=== PATIENT | female | born 1980 | race American Indian/Alaskan Native ===

== ENCOUNTER 2017-02-02 06:06 | Inpatient (IN) | payer BC ==
[2017-01-29 12:17] LABS: Basophils % (Auto) 0.6 % (0.0-1.8); Eosinophils % (Auto) 3.1 % (0.0-4.3); Hematocrit 39.2 % (30.3-42.9); Hemoglobin 12.9 gm/dl (10.1-14.3); Mean Corpuscular HGB Conc 33 % (30-34); Mean Corpuscular Hemoglobin 28 pg (28-32); Mean Corpuscular Volume 85 fl (79-97); Platelet Count 201 K/mm3 (140-440); Red Cell Distribution Width 12.4 % (13.2-15.2); White Blood Count 8.4 K/mm3 (4.5-11.0)
--- NOTE | 2017-01-29 12:20 | Anesthesia Consultation ---
Anesthesia Consult and Med Hx Date of service: 01/29/17 - Airway Anesthetic Teeth Evaluation: Good ROM Head & Neck: Adequate Mental/Hyoid Distance: Adequate Mallampati Class: Class II Intubation Access Assessment: Probably Good - Pulmonary Exam CTA: Yes - Cardiac Exam Cardiac Exam: RRR - Pre-Operative Health Status ASA Pre-Surgery Classification: ASA2 Proposed Anesthetic Plan: General - Pulmonary Hx Asthma: Yes - Cardiovascular System Hx Hypertension: No - Central Nervous System Hx Psychiatric Problems: No - Endocrine Hx Non-Insulin Dependent Diabetes: No - Hematic Hx Anemia: Yes - Other Systems Hx Alcohol Use: Yes (occas) Hx Cancer: No
[2017-01-29 12:36] LABS: Anion Gap 14 mmol/L; BUN/Creatinine Ratio 14.28; Blood Urea Nitrogen 10 mg/dL (7-17); Calcium 8.8 mg/dL (8.4-10.2); Carbon Dioxide 27 mmol/L (22-30); Chloride 103.8 mmol/L (98-107); Glucose 93 mg/dL (65-100); Potassium 4.1 mmol/L (3.6-5.0); Sodium 141 mmol/L (137-145)
--- NOTE | 2017-02-01 14:06 | History and Physical Report ---
History of Present Illness Date of examination: 01/29/17 History of present illness: Patient has been reassessed/reevaluated/re-examined. H&P has been reviewed. No interval changes. This is a 36 years old female who presents with menstrual disorder. The patient complains of menses, heavy bleeding, dysmenhorrhea, history of fibroids , fatigue and cramping, but denies spotting, lack of menses, she may be , history of thyroid disease, history of bleeding disorders, lightheadness and orthostatic symptoms. Menstrual periods have been regular and with excessive flow. Interval between menses is 26 days and 30 days. Number of pads used per day is 9-10. Menstrual flow lasts 3 days and 4 days. This is a 36 years old female who presents with uterine fibroids. She complains of abdominal pain, abdominal pressure, pelvic pain, pelvic pressure and menorrhagia, but denies intermenstrual bleeding. Prior to today's visit the patient has had US of pelvis. Patient's symptoms when present disrupts her normal daily activities Patient desires definitive treatment Vital Signs: Patient Profile: 36 Years Old Female LMP: 01/25/2017 Height: 70 inches (177.80 cm) Weight: 213 pounds (96.82 kg) BMI: 30.56 BSA: 2.15 Menstrual History: LMP (date): 01/25/2017 Current Method of Contraception: None Past History : 2 Term Births: 0 Premature Births: 0 Living Children: 0 Para: 0 Mult. Births: 0 Prev : 0 Prev. attempt? 0 Aborta: 2 Elect. Ab: 2 Spont. 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 Operations: Breast Biopsy: (1999) D&C:x2 Abnormal PAP: negative Uterine Anomaly: positive fibroids Infection History HIV Risk Eval: no Current Allergies (reviewed today): TETRACYCLINE HCL (TETRACYCLINE HCL CAPS) (Critical) LEVAQUIN (Critical) LATEX GLOVES (DISPOSABLE GLOVES) (Critical) Past Medical History: Asthma Pneumonia Past Surgical History: Breast Biopsy: (1999) D&C:x2 Family History Summary: Other family member - Has No Family History of Colon Cancer - Entered On: 2016 Other family member - Has No Family History of Breast Cancer - Entered On: 2016 Other family member - Has Family History of Hypertension - Entered On: 01/29/2017 Other family member - Has Family History of Hyperlipidemia - Entered On: 2016 Other family member - Has Family History of Diabetes - Entered On: 01/29/2017 Other family member - Has Family History of Coronary Heart Disease - Entered On : 01/29/2017 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 Risk Factors: Smoked Tobacco Use: Never smoker Smokeless Tobacco Use: Never Passive smoke exposure: no Drug use: no HIV high-risk behavior: no Alcohol use: yes Type: occ Exercise: no Seatbelt use: 100 % Review of Systems See HPI General Complains of fatigue. Denies fever, chills, sweats, anorexia, weakness, malaise, weight loss and sleep disorder. Complains of urinary frequency, abnormal vaginal bleeding, painful periods and painful sex. Denies vaginal discharge, incontinence, dysuria, hematuria, amenorrhea, menorrhagia, pelvic pain, genital sores, decreased libido, urinary urgency, hot flashes, vaginal dryness, vaginal itching and vaginal odor. CV Denies chest pains, palpitations, syncope, dyspnea on exertion, orthopnea, PND and peripheral edema. Resp Denies cough, dyspnea at rest, excessive sputum, hemoptysis, wheezing and pleurisy. GI Denies nausea, vomiting, diarrhea, constipation, change in bowel habits, abdominal pain, melena, hematochezia, jaundice, gas/bloating, indigestion/ heartburn, dysphagia and odynophagia. Breast Denies left breast lump, right breast lump, nipple discharge, bloody discharge from nipple, breast pain, abnormal mammogram and breast enlargement. Psych Denies depression, anxiety, irritability and mood swings. Past History Past Medical History: other (See HPI) Past Surgical History: Other (See HPI) Social history: other (See HPI) Family history: other (See HPI) Medications and Allergies Allergies Allergy/AdvReac Type Severity Reaction Status Date / Time adhesive Allergy Hives Verified 01/19/17 12:15 latex Allergy Hives Verified 01/19/17 12:15 Home Medications Medication Instructions Recorded Confirmed Last Taken Type ALBUTEROL Inhaler [Proair] 2 puff IH QID PRN 01/19/17 01/19/17 Unknown History Cetirizine HCl [ZyrTEC] 10 mg PO DAILY 01/19/17 01/19/17 Unknown History Ferrous Sulfate [Feosol] 325 mg PO BID 01/19/17 01/19/17 Unknown History Active Meds: Active Medications Celecoxib (Celebrex) 200 mg PO PREOP NR Stop: 02/02/17 23:59 Gabapentin (Neurontin) 600 mg PO PREOP NR Stop: 02/02/17 23:59 Sodium Chloride (Nacl 0.9% 1000 Ml) 1,000 mls @ 100 mls/hr IV DIRECT ISAIAH Midazolam HCl (Versed) 2 mg IV PREOP NR Stop: 02/02/17 23:59 Review of Systems Constitutional: other (See HPI) Exam - Physical Exam Narrative exam: HEENT: normocephalic, no lesions or deformities Neck/Thyroid: supple, thyroid normal Skin no significant abnormal lesions or rashes Chest: respiratory effort normal, clear to auscultation CV: regular, normal S1-S2, no murmur, no rub, no gallop Abdomen: Obese, normal bowel sounds, soft, nontender, no HSM Musculoskeletal: grossly normal ROM in joints, no joint tenderness or muscle weakness Neuro: no gross anomalities Extremities: no clubbing, cyanosis, or edema 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 Questions answered. Discussed with patient various medical, surgical and radiological therapies common for treatment including myomectomy hysterectomy and uterine artery embolization Patient's symptoms when present disrupts her normal daily activities Patient desires definitive treatment Patient desires hysterectomy Discussed risks and benefits of laparotomy, laparoscopy, vaginal and robotic assisted approaches for hysterectomies Patient desires robotic assisted total hysterectomy. Consent reviewed and signed . The risks and alternatives for this surgery were reviewed with the patient. Discuss the risks of the surgery including infection , bleeding possibly heavy enough to require a blood transfusion, possible damage to bowel, bladder or ureter. Patient understand that this surgery with make her sterile.Patient understands if her ovaries are removed she will become menopausal. Also if unable to complete robitcally a laparotomy maybe required. Her questions were answered. Patient advised the small risks of spreading of malignancy if morcellator is used during the surgery patient understands and approve of use if necessary Patient understands and desires to proceed. (2) Menometrorrhagia Current Visit: Yes Status: Acute Plan to address problem: Secondary to #1 (3) Dysmenorrhea Current Visit: Yes Status: Acute Plan to address problem: Secondary to #1 (4) Asthma Current Visit: Yes Status: Chronic Qualifiers: Asthma severity: mild intermittent Asthma complication type: A
[2017-02-02] MEDS ORDERED: NACL BACTERIOSTATIC INFILTRATI ONE (06:33)
[2017-02-02] MEDS ORDERED: CLARITIN PO ONE (06:58)
[2017-02-02] MEDS ORDERED: NACL 0.9% 1000 ML 1,000 ML IV SCH (07:00)
[2017-02-02] MEDS ORDERED: NEURONTIN PO NR (07:00)
[2017-02-02] MEDS ORDERED: VERSED IV NR (07:00)
--- NOTE | 2017-02-02 07:18 | Anesthesia Day of Surgery ---
Anesthesia Day of Surgery - Day of Surgery Patient Examined: Yes Patient H&P Reviewed: Yes Patient is NPO: Yes
[2017-02-02] MEDS ORDERED: ZEMURON IV ONE ×2 (07:24→09:35)
[2017-02-02] MEDS ORDERED: XYLOCAINE MPF 2% ONE (07:24)
[2017-02-02] MEDS ORDERED: DIPRIVAN 10 MG/ML IV ONE (07:25)
[2017-02-02] MEDS ORDERED: METHYLENE BLUE ONE (07:28)
[2017-02-02] MEDS ORDERED: NEOSPORIN GU IR ONE ×2 (07:28→07:46)
[2017-02-02] MEDS ORDERED: MARCAINE-EPI 0.25%-1:200,000 INFILTRATI ONE ×2 (07:28→07:46)
[2017-02-02] MEDS ORDERED: NACL 0.9% IR ONE ×2 (07:46)
[2017-02-02] MEDS ORDERED: PROAIR IH ONE (08:45)
[2017-02-02] MEDS ORDERED: ZOFRAN ONE (08:47)
[2017-02-02] MEDS ORDERED: DECADRON ONE (08:47)
[2017-02-02] MEDS ORDERED: ZOFRAN IV PRN (09:00)
[2017-02-02] MEDS ORDERED: NACL 0.9% 100 ML ONE (09:30)
[2017-02-02] MEDS ORDERED: NACL 0.9% IV ONE (09:37)
[2017-02-02] MEDS ORDERED: METHYLENE BLUE IV ONE (09:38)
[2017-02-02] MEDS ORDERED: NACL 0.9% 1000 ML 1,000 ML ONE (09:43)
[2017-02-02] MEDS ORDERED: NEOSTIGMINE ONE (10:15)
[2017-02-02] MEDS ORDERED: ROBINUL ONE (10:15)
[2017-02-02] MEDS ORDERED: PROAIR IH PRN (10:53)
[2017-02-02] MEDS: DILAUDID IV PRN ×2 (11:35→11:45)
[2017-02-02] MEDS ORDERED: PROVENTIL IH PRN (12:05)
--- NOTE | 2017-02-02 12:07 | Operative Report ---
Operative Report Operative Report: Date of procedure: 02/02/2017 Pre-operative diagnosis: Symptomatic leiomyomata with dysmenorrhea and menometrorrhagia and pelvic pain Post-operative diagnosis: Same plus pelvic adhesive disease Procedure name(s):Robotic Assisted Total Hysterectomy with bilateral salpingectomy and lysis of adhesions Surgeon: Jay Hammond MD Comprehensive Ophthalmologist: Chris Villeda physician asset protection assistant Anesthesia: General EBL: 50 mL Complications: None Findings: Patient with a uterus with multiple leiomyomata measuring approximately 14-16 weeks in size with a large myoma posteriorly approximately 7 cm in diameter discussed displacing the uterus to a left she had normal ovaries bilaterally and fallopian tubes bilaterally also had multiple small pedunculated fibroids. Patient did have adhesions between the colon and posterior uterus in the posterior cul-de-sac Specimen(s): Uterus with cervix and bilateral fallopian tubes Procedure: Patient was brought to the operating room where general anesthesia was induced without difficulty. Patient was placed in the dorsal lithotomy position. Prepped and draped in the usual sterile manner for robotic procedure. Rivera catheter was placed without difficulty. Speculum was placed in the vagina. A large V-Care Uterine manipulator was placed without difficulty. Attention was now switched to the patient's abdomen. A vertical supra-umbilicus incision was made with a scalpel. A 10-12 trocar was placed in this incision under direct visualization. Intra-abdominal placement was verified with no evidence of internal organ damage. The patient pelvic findings were noted as above. It was determined that the patient was a candidate for robotic procedure. On both sides the umbilical incision at about 8 cm, incisions were made for robotic trocar. Each robotic trocar was placed under direct visualization with no evidence of internal organ damage. Two surgery tech ports were then placed. One 8-10 trocar was placed 2 fingerbreadths above the right iliac crest. The second [address] between the camera port and the right robotic arms port. At this time the patient was placed in extreme Trendelenburg. The da Hetal robot was then docked on the patient's left side. The trocars connected to the robot appropriately. At this time I took my place under the robotic operating jaimes. Starting on the patient's right side the mesosalpinx of the tube were cauterized for mild distal to proximal tube. Bipolar cautery was placed across the proximal portion of the fallopian tube. This area was cauterized and cut the fallopian tube was then removed from the large asset protection assistant port. Next the adhesions of the colon and the posterior cul-de-sac was taken down both sharply and bluntly carefully with no evidence of organ damage. Adhesions of the left ovary and the posterior uterus and cul-de-sac were also taken down. Next the Utero-ovarian complex was cauterized and cut. This was followed by cauterizing and cutting the right fallopian tube and right round ligament. The broad ligament was then opened. The bladder flap was formed anteriorly. The posterior broad ligament was then excised. The uterine vessels were skeletonized. The ureter was clearly seen out of the operative field. Methylene blue was administrated intravenously and no blue dye was seen throughout the case intraoperatively. The bladder was pushed away from the anterior uterus. Attention was then switched to the patient's left side. The same procedure was repeated on the left side with perform the salpingectomy followed by isolating the uterine vessels cauterized and cutting and completing the bladder flap from the left side. At this time the uterus was appearing very cyanotic. After inspecting the bladder flap insured no evidence of bladder injury, also expecting the posterior cul-de-sac clearly seen and the uterosacrals were no evidence of damage: the colpotomy was then started. Incision started at 6:00 until the V-Care could be seen. This incision was extended from 6:00 to 9:00. Then from 6:00 to 3:00. Then from 9:00 to 12:00. This incision was extended from 3:00 to 12:00. At this time colpotomy was complete with no evidence of adjacent organ damage. The surgery tech remove the uterus from through the colpotomy site. The vaginal cuff was irrigated and cauterized and found to be hemostatic. The cuff was closed with roboticly using 0 V- Lock suture. This closure was hemostatic after irrigation and Bovie. All pedicles were inspected and found to be hemostatic. The ureters were identified bilaterally and found to be functioning normal. The patient had clear green urine in the Rivera catheter with no evidence of mixture with blood. Daryn was placed on the cuff and pedicles for postoperative hemostasis . All instruments were then removed. The large trocar sites were closed in layers and 4-0 Vicryl. The smaller incisions were closed subcuticularly with 4-0 Vicryl. The patient tolerated procedure well. She was awakened in the operating room and accompanied to the recovery room in good condition.
[2017-02-02] MEDS ORDERED: D5LR 1,000 ML IV ONE (12:16)
--- NOTE | 2017-02-02 12:50 | Admit Criteria Form ---
<SAL SAENZ - Last Filed: 02/02/17 12:49> Admission Criteria Documentation: AMBULATORY SURGERY EXCEPTION CRITERIA Ambulatory Surgery Exception Criteria ( Place 'X' for any and all applicable criteria): Surgery or procedure performed on ambulatory basis may require inpatient stay for[A] ANY ONE of the following(1)(2)(3)(4)(5)(6)(7)(8)(9): [X] I. A preoperative situation, condition, or finding that warrants inpatient stay as indicated by ANY ONE of the following: [X] a) Inpatient care needed because of severity of a disease or condition rather than the surgery (eg, severe cardiac or respiratory disease, severe infection) (15) (16 ) (17) (18) [] b) Emergent procedure (eg, angioplasty for acute ischemia)(19) [] c) Complex surgical approach or situation as indicated by ANY ONE of the following(3): [] i) Open approach needed instead of usual endoscopic, transcatheter, or other less invasive procedure [] ii) Difficult approach because of previous operation [] iii) Airway monitoring required after open neck procedures(20)(21) [] iv) Large mass requiring unusually extensive dissection [] v) Additional complicating feature requiring inpatient care (eg, drain management)(22(23): [] d) Major surgery in a pt with high anesthetic risk as indicated by ANY ONE of the following (2)(3)(5)(7)(8): [] i) ASA risk class III or higher (severe systemic disease impairing function) [D] [] ii) Advanced age (eg, older than 85 years)(14)(24) [] iii) Symptomatic heart failure(25) [] iv) Symptomatic asthma or COPD(8)(21) [] v) Morbid obesity with hemodynamic or respiratory problems(20)( 21)(26)(27) [] vi) Obstructive sleep apnea(20)(21) [] vii) Former premature infants who are younger than 60 weeks [] viii) High risk for severe postoperative abnormalities (eg, severe postoperative hypocalcemia after parathyroidectomy for severe hyperparathyroidism)(27)( 28) [] ix) Unstable angina(25) [] e) Drug-related risk requiring inpatient stay as indicated by ANY ONE of the following(5)(10)(14)(32)(33) [] i) Procedure requires discontinuing drugs or other therapy (eg , antiarrhythmic medication, antiseizure medication), which necessitates inpatient observation or treatment.(18)(31) [] ii) Major surgery and high risk drug use as indicated by ANY ONE of the following: [] 1) Active abuse of cocaine or similar drug [] 2) Monoamine oxidase inhibitor use [] 3) Other drug identified as posing risk [] f) Inadequate outpatient care situation as indicated by ANY ONE of the following(5)(10)(14)(32)(33) [] i) Patient lives remote from medical facility and procedure has urgent complication potential, and temporary nearby residence cannot be arranged [] ii) Patient will have postprocedure incapacitation and inadequate assistance at home, or alternative level of care cannot be arranged. [] iii) Patient will have long general anesthesia or procedure side effect resolution time, and competent person to stay with patient on first postoperative night at home or alternative level of care cannot be arranged. []iv) Other inadequate outpatient situation that cannot be handled by other means [] II. A perioperative event, condition, or finding that warrants inpatient stay as indicated by ANY ONE of the following (1)(2)(3): [] a) Inadequate physiologic recovery: cardiovascular, respiratory, or hemodynamic status not normal or near preoperative baseline(18) [] b) Hemodynamic instability [] c) Patient not alert with near normal or baseline mental status [] d) Temperature not normal or as expected and not appropriate for outpatient treatment of condition [] e) Ambulatory or appropriate activity level status not yet achieved post procedure [E](34)(35)(36) [] f) Operative site not appropriate (eg, unexpected or excessive drainage or bleeding) [] g) Postoperative effects not resolved or adequately managed (eg, significant pain or vomiting not appropriate for outpatient or next level of care)(10)(12) [] h) Complicating features requiring inpatient care as indicated by ANY ONE of the following(37): [] i) Severe complications of procedure (eg, bowel injury, airway compromise, vascular injury,severe hemorrhage) [] ii) Extensive (eg, dissection far beyond usual scope of procedure ) or prolonged (eg, 120 minutes beyond usual) surgery needed requiring inpatient postoperative care [] iii) Conversion to an open or complex procedure that requires inpatient care (eg, open vs laparoscopic cholecystectomy, abdominal vs vaginal hysterectomy)(38) [] iv) Comorbid condition or test result identified during or post procedure that requires inpatient care (7) [] v) Malignant hyperthermia(30) [] vi) Other complicating feature requiring inpatient care(22)(23) Inpatient stay may be needed until ALL of the following are present (1)(2)(3)(4) (5)(6)(10)(14)(33)(40): []a) Physiologic recovery: cardiovascular, respiratory, and hemodynamic status normal or near preoperative baseline []b) Hemodynamic stability []c) Patient alert, with near normal or baseline mental status []d) Temperature appropriate: patient afebrile or temperature appropriate for outpt treatment of condition []e) Activity level appropriate: ambulatory or appropriate activity level post procedure []f) Operative site appropriate as indicated by ALL of the following: []i) Site dry or with expected drainage []ii) Any blood noted is as expected for procedure. []g) Postoperative effects resolved or managed as indicated by ALL of the following: []i) Pain management appropriate for outpatient (or next level of) care(10) []ii) Minimal nausea and vomiting: if present, successfully treated with oral medication(12) []iii) Headache, dizziness, or drowsiness (if present) are mild. []h) Voiding status acceptable as indicated by ANY ONE of the following: []i) Voiding spontaneously []ii) No voiding but instructions given for follow-up in 6 to 8 hours []iii) Urinary catheter in place, and instructions given for follow-up []i) Complicating features requiring inpatient care manageable at a lower level of care(37) []j) Comorbid conditions manageable at a lower level of care(37) The original [employer] content created by [employer] has been revised. The portions of the content which have been revised are identified through the use of italic text or in bold, and [facility] has neither reviewed nor approved the modified material. All other unmodified content is copyright [employer]. Please see references footnoted in the original [employer] [facility] edition 2016 Admission Criteria Met: Yes <DAYSI BALDWIN - Last Filed: 02/02/17 20:53> Admission Criteria Met: Yes (Large mass)
[2017-02-02] MEDS ORDERED: TORADOL IV SCH (13:01)
[2017-02-02] MEDS ORDERED: ANCEF/NS 1 GM/50 ML 1 GM/50 ML BAG IV SCH (13:01)
[2017-02-02] MEDS ORDERED: TYLENOL PO PRN (13:01)
[2017-02-02] MEDS ORDERED: MILK OF MAGNESIA PO PRN (13:01)
[2017-02-02] MEDS: D5LR 1,000 ML IV SCH ×2 (13:12→21:04)
[2017-02-02] MEDS: ZOFRAN IV PRN ×2 (13:45→17:49)
[2017-02-02] MEDS: NORCO 5/325 PO PRN ×2 (15:39→21:03)
--- NOTE | 2017-02-02 18:00 | Event Note ---
Date: 02/02/17 Day of surgery. Discuss operative findings with patient and questions answered. Patient without fever. Will ambulate in halls this evening. Good urine output. We will continue routine postoperative care.
[2017-02-02] MEDS: COLACE PO SCH (21:03)
[2017-02-02] MEDS ORDERED: FEOSOL PO SCH (22:00)
[2017-02-03] MEDS ORDERED: ANCEF/NS 1 GM/50 ML 1 GM/50 ML BAG IV SCH (02:00)
[2017-02-03] MEDS: D5LR 1,000 ML IV SCH (03:28)
[2017-02-03] MEDS: NORCO 5/325 PO PRN ×2 (05:02→12:01)
[2017-02-03] MEDS ORDERED: ANCEF/STERILE WATER 2 GM/20 ML 2 GM/20 ML SYRINGE IV NR (07:00)
[2017-02-03 07:24] LABS: Hematocrit 34.6 % (30.3-42.9); Hemoglobin 11.2 gm/dl (10.1-14.3)
--- NOTE | 2017-02-03 10:24 | Progress Note ---
Subjective Date of service: 02/03/17 Interval history: Patient is doing well. No anesthetic related complaints. Objective - Constitutional Vitals: Vital Signs - 12hr 02/03/17 02/03/17 02/03/17 00:00 04:00 07:50 Temperature 97.9 F 98.8 F 98.5 F Pulse Rate [ 74 74 86 Apical] Pulse Rate [ 86 Radial] Respiratory 18 16 18 Rate Blood Pressure 143/73 136/76 126/56 [Left Arm] - Labs CBC & Chem 7: 02/03/17 06:13 01/29/17 12:00
--- NOTE | 2017-02-03 11:16 | Discharge Summary ---
Providers - Providers Date of Admission: 02/02/17 11:59 Date of discharge: 02/03/17 Attending physician: DAYSI BALDWIN Primary care physician: BUS DRIVER Hospitalization Reason for admission: symptomatic leiomyomata Condition: Good Procedures: Robotic-assisted total hysterectomy with bilateral salpingectomy and lysis of adhesions Hospital course: Patient was admitted and underwent above procedure without complications. Her post operative course was benign she was afebrile throughout. Patient postoperative day 1 hematocrit was in an acceptable range. Patient had no orthostatic symptoms. Patient was tolerating regular diet and voiding without difficulty at time of discharge. Patient incision was healing well without evidence of infection. Disposition: DC-01 TO HOME OR SELFCARE - Discharge Diagnoses (1) Intramural leiomyoma of uterus Status: Resolved (2) Menometrorrhagia Status: Resolved (3) Dysmenorrhea Status: Resolved (4) Asthma Status: Chronic Qualifiers: Asthma severity: mild intermittent Asthma complication type: A Core Measure Documentation - Palliative Care Palliative Care/ Comfort Measures: Not Applicable - Core Measures Any of the following diagnoses?: none Exam - Constitutional Vitals: Temp Pulse Resp BP Pulse Ox 98.5 F 86 18 126/56 99 02/03/17 07:50 02/03/17 07:50 02/03/17 07:50 02/03/17 07:50 02/02/17 12:25 General appearance: Present: no acute distress - Neck Neck: Present: supple - Respiratory Respiratory effort: normal - Cardiovascular Rhythm: regular - Extremities Extremity abnormal: edema - Abdominal General gastrointestinal: Present: soft, tender (appropriately), distended ( mildly), other (incisions healing well) Female genitourinary: Present: deferred - Rectal Rectal Exam: deferred - Integumentary Integumentary: Present: clear, warm, dry - Musculoskeletal Musculoskeletal: gait normal, strength equal bilaterally - Neurologic Neurologic: no focal deficits, moves all extremities Plan Activity: advance as tolerated Diet: regular Wound: open to air Additional Instructions: Patient instructed no heavy lifting for 4 weeks. No intercourse for 8 weeks. Call office for fever, chills, nausea, vomiting or pain not controlled by pain medications. Ambulation is encouraged. Patient's call for heavy vaginal bleeding. Patient instructed to keep her scheduled post operative office appointment. Follow up with: PRIMARY CARE, [Primary Care Provider] - 7 Days Prescriptions: Ibuprofen [Motrin 800 MG tab] 800 mg PO Q6H PRN #30 tablet PRN Reason: Pain oxyCODONE /ACETAMINOPHEN [Percocet 5/325 mg] 1 - 2 tab PO Q4H PRN #30 tablet PRN Reason: Pain, Moderate
[2017-02-03] MEDS: COLACE PO SCH (12:01)
[2017-02-03 13:22] VITALS: BP 126/64
== END 2017-02-03 14:11 | disposition home or self-care (01) | DRG 743 ==
LOC: OR 06:06 → OB 11:59
PROVIDERS: ADMIT Obstetrics & Gynecology; ATTEND Obstetrics & Gynecology
PROC: 0UT94ZZ Resection of Uterus, Percutaneous Endoscopic Approach (ICD-10-PCS; principal; 2017-02-02)
PROC: 0UTC4ZZ Resection of Cervix, Percutaneous Endoscopic Approach (ICD-10-PCS; 2017-02-02)
PROC: 0UT74ZZ Resection of Bilateral Fallopian Tubes, Percutaneous Endoscopic Approach (ICD-10-PCS; 2017-02-02)
PROC: 0UNF4ZZ Release Cul-de-sac, Percutaneous Endoscopic Approach (ICD-10-PCS; 2017-02-02)
PROC: 0DNN4ZZ Release Sigmoid Colon, Percutaneous Endoscopic Approach (ICD-10-PCS; 2017-02-02)
PROC: 0UN14ZZ Release Left Ovary, Percutaneous Endoscopic Approach (ICD-10-PCS; 2017-02-02)
PROC: 8E0W4CZ Robotic Assisted Procedure of Trunk Region, Percutaneous Endoscopic Approach (ICD-10-PCS; 2017-02-02)
DX: D25.1 Intramural leiomyoma of uterus (principal); N92.1 Excessive and frequent menstruation with irregular cycle; N91.2 Amenorrhea, unspecified; N94.6 Dysmenorrhea, unspecified; Z98.890 Other specified postprocedural states; J45.909 Unspecified asthma, uncomplicated; Z82.49 Family history of ischemic heart disease and other diseases of the circulatory system; Z83.3 Family history of diabetes mellitus; Z91.040 Latex allergy status; Z91.018 Allergy to other foods; Z79.899 Other long term (current) drug therapy
CPT/HCPCS: 36415; 80048; 84703; 85014; 85018; 85025; 86850; 86900; 86901; 88302; 88305; 88307; A4217; J0690; J1100; J1170; J2250; J2405; J2704; J2710; J7030; J7121; Q9968